=== PATIENT | female | born 1955 | race Two or more races ===

== ENCOUNTER 2024-10-15 18:22 | Emergency (ER) | payer OTHER ==
[~2024-10-15] VITALS: Ht 154.9 cm; Wt 61.0 kg
--- NOTE | 2024-10-15 18:50 | ED.PDOC ---
History of Present Illness HPI Comments 69-year-old female came to ER for abnormal labs. Patient has history of hypertension, diabetes, COPD on home oxygen 2 liters/minute, status post left AKA. Patient was seen at [facility] earlier, noted to be hyperkalemic at potassium 5.5, and was sent here for further evaluation. Patient also c omplaining of right foot pain. 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 Hx Family History Family History: Reviewed,noncontributory to illness Social History Smoker: Non-Smoker Alcohol: Denies ETOH Use Drugs: Denies Drug Use Lives In: Home Constitutional: denies: chills, diaphoresis, fatigue, fever, malaise, sweats, weakness, others EENTM: denies: blurred vision, double vision, ear bleeding, ear discharge, ear drainage, ear pain, ear ringing, eye pain, eye redness, hearing loss, mouth pain, mouth swelling, nasal discharge, nose bleeding, nose congestion, nose pain, photophobia, tearing, throat pain, throat swelling, voice changes, others Respiratory: denies: cough, hemoptysis, orthopnea, SOB at rest, shortness of breath, SOB with excertion, stridor, wheezing, others Cardiovascular: denies: chest pain, dizzy spells, diaphoresis, Dyspnea on exertion, edema, irregular heart beat, left arm pain, lightheadedness, palpitations, PND, syncope, others Gastrointestinal: denies: abdomen distended, abdominal pain, blood streaked bowels, constipated, diarrhea, dysphagia, difficulty swallowing, hematemesis, melena, nausea, poor appetite, poor fluid intake, rectal bleeding, rectal pain, vomiting, others Genitourinary: denies: abnormal vagina bleeding, burning, dyspareunia, dysuria, flank pain, frequency, hematuria, incontinence, pain, , vagina discharge, urgency, others Neurological: denies: dizziness, fainting, headache, left sided numbness, left sided weakness, numbness, paresthesia, pre-existing deficit, right sided numbness, right sided weakness, seizure, speech problems, tingling, tremors, weakness, others Musculoskeletal: reports: muscle pain (Right leg pain); denies: back pain, gout, joint pain, joint swelling, muscle stiffness, neck pain, others Integumetry: denies: bruises, change in color, change in hair/nails, dryness, laceration, lesions, lumps, rash, wounds, others Allergic/Immunocompromised: denies: Difficulty Healing, Frequent Infections, Hives, Itching, others Hematologic/Lymphatic: denies: anemia, blood clots, easy bleeding, easy bruising, swollen glands, others Endocrine: denies: excessive hunger, excessive sweating, excessive thirst, excessive urination, flushing, intolerance to cold, intolerance to heat, unexplained weight gain, unexplained weight loss, others Psychiatric: denies: anxiety, bipolar disorder, depression, hopeless, panic disorder, schizophrenia, sleepless, suicidal, others Physical Exam General Appearance: No Apparent Distress, Normal HEENT: Normal ENT Inspection, Pharynx Normal, TMs Normal Neck: Full Range of Motion, Non-Tender, Normal, Normal Inspection Respiratory: Chest Non-Tender, Lungs Clear, No Accessory Muscle Use, No Respiratory Distress, Normal Breath Sounds Cardiovascular: No Edema, No JVD, No Murmur, No Gallop, Normal Peripheral Pulses, Regular Rate/Rhythm Breast Exam: Deferred Gastrointestinal: No Organomegaly, Non Tender, No Pulsatile Mass, Normal Bowel Sounds, Soft Genitalia: Deferred Pelvic: Deferred Rectal: Deferred Extremities: No calf tenderness, Normal capillary refill, Normal range of motion, Non-tender, No pedal edema, Other (Left AKA) Musculoskeletal : Apperance: Normal Neurologic: Alert, musician instrumental II-XII nml as Tested, No Motor Deficits, Normal Affect, Normal Mood, No Sensory Deficits Cerebellar Function: Normal Reflexes: Normal Skin: Dry, Normal Color, Warm Lymphatic: No Adenopathy Was a procedure done? Was a procedure done?: No Differential Dx Considerations may include: Hyperkalemia, chronic kidney failure, diabetes, electrolyte imbalance X-Ray, Labs, Meds, VS Vital Signs Date Time Temp Pulse Resp B/P (MAP) Pulse Ox O2 Delivery O2 Flow Rate FiO2 10/15/24 22:17 87 17 97 Nasal Cannula* 3 32 10/15/24 22:16 98.6 87 22 150/87 (108) 96 98.6 10/15/24 21:42 97.7 60 142/66 (91) 95 97.7 10/15/24 18:37 98.8 65 18 128/59 (82) 91 98.8 Lab Test 10/15/24 22:03 10/15/24 18:59 Range/Units POC Glucose 140 H 70-106 mg/dl White Blood Count 8.4 4.4-10.8 10^3/uL Red Blood Count 4.36 4.0-5.20 10^6/uL Hemoglobin 11.9 L 12.2-16.2 g/dL Hematocrit 37.7 36.0-46.0 % Mean Corpuscular Volume 86.5 80.0-100.0 fL Mean Corpuscular Hemoglobin 27.3 L 28.0-32.0 pg Mean Corpuscular Hemoglobin Concent 31.5 L 32.0-36.0 g/dL Red Cell Distribution Width 15.9 H 11.8-14.3 % Platelet Count 300 140-450 10^3/uL Mean Platelet Volume 7.0 6.9-10.8 fL Neutrophils (%) (Auto) 49.3 37.0-80.0 % Lymphocytes (%) (Auto) 42.9 10.0-50.0 % Monocytes (%) (Auto) 6.9 0.0-12.0 % Eosinophils (%) (Auto) 0.0 0.0-7.0 % Basophils (%) (Auto) 0.9 0.0-2.0 % Neutrophils # (Auto) 4.1 1.6-8.6 10 ^3/uL Lymphocytes # (Auto) 3.6 0.4-5.4 10 ^3/uL Monocytes # (Auto) 0.6 0-1.3 10 ^3/uL Eosinophils # (Auto) 0 0-0.8 10 ^3/uL Basophils # (Auto) 0.1 0-0.2 10 ^3/uL Nucleated Red Blood Cells 0.0 % Sodium Level 138 136-145 mmol/L Potassium Level 5.6 *H 3.5-5.1 mmol/L Chloride Level 107 98-107 mmol/L Carbon Dioxide Level 24 20-31 mmol/L Anion Gap 7 5-15 Blood Urea Nitrogen 52 H 9-23 mg/dL Creatinine 2.13 H 0.550-1.02 mg/dL Glomerular Filtration Rate Calc 24 >90 mL/min BUN/Creatinine Ratio 24.4 H 10.0-20.0 Serum Glucose 187 H 74-106 mg/dL Calcium Level 9.9 8.7-10.4 mg/dL Current Medications Medications (Trade) Dose Ordered Sig/Babak Route Start Time Stop Time Status Last Admin Calcium Gluconate/ Sodium Chloride 50 ml @ 100 mls/hr Q30M IV 10/15/24 21:45 10/15/24 22:44 DC 10/15/24 22:59 Sodium Bicarbonate 100 ml ONCE ONCE IV 10/15/24 21:45 10/15/24 21:46 DC 10/15/24 22:58 Dextrose 50 ml ONCE ONCE IV 10/15/24 21:45 10/15/24 21:46 DC 10/15/24 22:58 Insulin Human Regular (InsuLIN R) 10 units ONCE ONCE IV 10/15/24 21:45 10/15/24 21:46 DC 10/15/24 22:58 TECHNIQUE: 3 radiographic views of the right foot were obtained. Comparison: None FINDINGS/IMPRESSION: There is 2 mm density adjacent to the medial head of the 3rd and 5th toes proximal phalanx which may represent small avulsed fragments of unknown chronicity versus nonspecific soft tissue calcification. Correlation with point tenderness is recommended. No dislocation. Small posterior calcaneal bony spur. Mild soft tissue edema of the foot. Small densities measuring up to 4 mm within the soft tissues of the distal lower leg which may represent nonspecific soft tissue calcification. Time of 1ST Reevaluation: 18:46 Reevaluation 1ST: Unchanged Patient Education/Counseling: Diagnosis, Treatment Family Education/Counseling: No Family Present Departure 1 Departure Time of Disposition: 23:42 (Patient's labs are close to baseline. Patient is potassium is mildly elevated. We will cover patient with antibiotics for her right foot cellulitis treat patient with a hyper K. Discussed with [place] and patient can follow up with her primary care doctor tomorrow morning.Using shared decision-making offered patient admission or transfer to another [facility] and patient decided she wanted to go home.) Impression: Primary Impression: Cellulitis Qualified Codes: L03.115 - Cellulitis of right lower limb Additional Impression: Hyperkalemia Disposition: HOME / SELF CARE / HOMELESS Condition: Stable Additional Instructions: You were prescribed antibiotics for your foot. It is important to follow up with your regular doctor tomorrow morning. If your symptoms worsen or you have any other concerns then please return to the ER. e-Prescriptions Cephalexin (KEFLEX CAPSULE) 250 Mg Cp 1 CAP PO QID for 7 Days, #28 CAP Prov: BINH CALIX MD 10/15/24 Discharged With: Self Critical Care Note Critical Care Time?: No Stability Stability form required: No Heart Score Heart Score: Heart Score Response (Comments) Value History N/A 0 EKG N/A 0 Age N/A 0 Risk Factors N/A 0 Troponin N/A 0 Total 0 I personally scribed for BINH CALIX MD ([email or web address]) on 10/15/24 at 18:50. Electronically submitted by Antolin Horowitz ([email or web address]). I personally scribed for BINH CALIX MD ([email or web address]) on 10/15/24 at 21:04. Electronically submitted by Antolin Horowitz ([email or web address]). BINH CALIX MD Oct 15, 2024 18:50
[2024-10-15 19:08] LABS: Basophils # (auto) 0.1 10 ^3/uL (0-0.2); Basophils % (auto) 0.9 % (0.0-2.0); Eosinophils # (auto) 0 10 ^3/uL (0-0.8); Hematocrit 37.7 % (36.0-46.0); Hemoglobin 11.9 g/dL (12.2-16.2); Lymphocytes # (auto) 3.6 10 ^3/uL (0.4-5.4); Lymphocytes % (auto) 42.9 % (10.0-50.0); Mean Corpuscular Hemoglobin 27.3 pg (28.0-32.0); Mean Corpuscular Hgb Conc. 31.5 g/dL (32.0-36.0); Mean Corpuscular Volume 86.5 fL (80.0-100.0); Monocytes # (auto) 0.6 10 ^3/uL (0-1.3); Monocytes % (auto) 6.9 % (0.0-12.0); Neutrophils # (auto) 4.1 10 ^3/uL (1.6-8.6); Neutrophils % (auto) 49.3 % (37.0-80.0); Platelet Count (auto) 300 10^3/uL (140-450); Red Blood Cells 4.36 10^6/uL (4.0-5.20); Red Cell Distribution Width 15.9 % (11.8-14.3); White Blood Cell 8.4 10^3/uL (4.4-10.8)
[2024-10-15 19:21] LABS: Chloride 107 mmol/L (98-107); Sodium 138 mmol/L (136-145)
[2024-10-15 19:22] LABS: Anion Gap 7 (5-15); Calcium 9.9 mg/dL (8.7-10.4); Carbon Dioxide 24 mmol/L (20-31)
[2024-10-15 19:27] LABS: BUN/Creatinine Ratio 24.4 (10.0-20.0)
[2024-10-15 19:37] LABS: Blood Urea Nitrogen 52 mg/dL (9-23); Glucose 187 mg/dL (74-106)
[2024-10-15 19:53] LABS: Potassium 5.6 mmol/L (3.5-5.1)
--- NOTE | 2024-10-15 20:34 | DVH ---
CLINICAL INDICATION: foot pain TECHNIQUE: 3 radiographic views of the right foot were obtained. Comparison: None FINDINGS/IMPRESSION: There is 2 mm density adjacent to the medial head of the 3rd and 5th toes proximal phalanx which may represent small avulsed fragments of unknown chronicity versus nonspecific soft tissue calcification. Correlation with point tenderness is recommended. No dislocation. Small posterior calcaneal bony spur. Mild soft tissue edema of the foot. Small densities measuring up to 4 mm within the soft tissues of t he distal lower leg which may represent nonspecific soft tissue calcification.
[2024-10-15 22:16] VITALS: BP 150/87; TEMP 98.6
[2024-10-15 22:17] VITALS: PULSE 87; RESP 17; O2SAT 97
[2024-10-15] MEDS: CALCIUM GLUC 1,000mg/50ml-NS 50 ML IV SCH (22:30)
[2024-10-15] MEDS: DEXTROSE (50%) 50ML SYRG IV ONE (22:58)
[2024-10-15] MEDS: SODIUM BICARB 8.4% 50Meq/50ml SYR Vial IV ONE (22:58)
[2024-10-15] MEDS: InsuLIN REG 1unit/0.01ml Soln (100units/ml) IV ONE (22:58)
[2024-10-15] MEDS ORDERED: CEPH250C PO (23:45)
[2024-10-16] MEDS: CEPHALEXIN 250 MG CAP PO ONE (00:04)
[2024-10-16] MEDS: HYDROcodone-ACET 5/325MG TAB PO ONE (00:13)
--- NOTE | 2024-10-16 12:50 | ECG ---
[facility] Test Date: 2024-10-15 Test Time: 18:38:44 Pat Name: RANJAN VILLEDA Department: ED Room: Gender: F [employer] Control Clerk: GONZALO : 1955 Requested By: BINH CALIX Order Number: [id number] Reading MD: Shukri Robledo Measurements Intervals [place] Rate: 65 P: 12 MT: 133 QRS: 75 QRSD: 78 T: 39 QT: 400 QTc: 416 Interpretive Statements Sinus rhythm Baseline wander in lead(s) II,III,aVF Electronically Signed On 10-17-2024 17:42:37 PDT by Shukri Robledo Please click the below link to view image of tracing.
== END 2024-10-16 00:19 | disposition home or self-care (01) ==
LOC: ER 18:22
DX: L03.115 Cellulitis of right lower limb (principal); E87.5 Hyperkalemia; I10 Essential (primary) hypertension; E11.9 Type 2 diabetes mellitus without complications; J44.9 Chronic obstructive pulmonary disease, unspecified; Z89.612 Acquired absence of left leg above knee; Z88.0 Allergy status to penicillin; Z88.6 Allergy status to analgesic agent; Z88.8 Allergy status to other drugs, medicaments and biological substances
CPT/HCPCS: 36415; 73630; 80048; 82962; 85025; 93005; 96365; 96375; 99285; J0613; J1815; J7042